=== PATIENT | male | born 1960 | race African-American/Black ===

== ENCOUNTER 2020-07-22 10:39 | Emergency (ER) | payer MEDICAID ==
[~2020-07-22] VITALS: Ht 175.3 cm; Wt 109.0 kg
[2020-07-22 11:00] VITALS: BP 185/96
[2020-07-22] MEDS ORDERED: ACETAMINOPHEN 325MG TABLET PO STA (11:17)
[2020-07-22 11:37] LABS: BASOPHILS % 0.9 % (0.0-2.0); EOSINOPHILS % 3.2 % (0.0-5.0); HEMATOCRIT. 40.2 % (42.0-52.0); HEMOGLOBIN. 14.5 g/dL (14.0-18.0); LYMPHOCYTES % 31.5 % (20.0-50.0); MEAN CORPUSCULAR HEMOGLOBIN 34.4 pg (28.0-32.0); MEAN CORPUSCULAR VOLUME 95.6 fL (80.0-94.0); MEAN PLATELET VOLUME 9.4 fl (7.4-10.4); MONOCYTES % 4.7 % (2.0-8.0); NEUTROPHILS % 59.7 % (40.0-76.0); PLATELET 107 x1000/uL (130-400); RED BLOOD CELL COUNT 4.21 mill/uL (4.7-6.1); RED CELL DISTRIBUTION WIDTH 13.2 % (11.6-14.6)
[2020-07-22 11:43] LABS: CHLORIDE 110 mEq/L (98-107)
[2020-07-22 12:51] LABS: CLARITY URINE CLEAR (CLEAR); COLOR URINE YELLOW (YELLOW); KETONES URINE NEGATIVE (NEGATIVE); LEUKOCYTE ESTERASE URINE NEGATIVE (NEGATIVE); NITRITE URINE NEGATIVE (NEGATIVE); OCCULT BLOOD URINE NEGATIVE (NEGATIVE); PROTEIN URINE NEGATIVE (NEGATIVE); SPECIFIC GRAVITY URINE 1.016 (1.005-1.030)
== END 2020-07-22 15:33 | disposition home or self-care (01) ==
LOC: ER 10:52
DX: M25.571 Pain in right ankle and joints of right foot (principal); M54.30 Sciatica, unspecified side
CPT/HCPCS: 36415; 73610; 74176; 80053; 81003; 85025; 99285